=== PATIENT | female | born 1985 | race Caucasian/White ===

== ENCOUNTER → 2021-03-02 | Outpatient (CLI) | payer OTHER ==
[2021-03-02 17:46] LABS: HIV 1/2 Antibodies Non-Reactive; HIV-1p24 Antigen Non-Reactive
[2021-03-02 22:22] LABS: HEPATITIS B SURFACE ANTIGEN Negative (Negative); HEPATITIS C VIRUS ANTIBODY Negative (Negative)
[2021-03-03 06:17] LABS: CYTOMEGALOVIRUS IGG INTERP Negative (Negative)
== END ==
LOC: COL.LAB 15:52
DX: Z11.3 Encounter for screening for infections with a predominantly sexual mode of transmission (principal)